=== PATIENT | female | born 1940 | race Caucasian/White ===

== ENCOUNTER 2020-06-30 14:10 | Inpatient (IN) | payer MEDICARE, OTHER ==
[~2020-06-30] VITALS: Ht 152.4 cm; Wt 85.3 kg
[2020-06-30 14:50] LABS: EOSINOPHILS % (AUTO) 6.3 % (0.0-8.0); HEMATOCRIT 34.7 % (36-48); LYMPHOCYTES % (AUTO) 21.7 % (21.0-51.0); MEAN CORPUSCULAR HGB CONC 30.5 g/dL (32.0-36.0); MEAN CORPUSCULAR VOLUME 98.3 fL (79-99); MONOCYTES % (AUTO) 9.1 % (3.0-13.0); NEUTROPHILS % (AUTO) 61.6 % (40.0-77.0); PLATELET COUNT (AUTO) 108 K/uL (130-400); RED BLOOD CELL COUNT(AUTO) 3.53 MIL/uL (4.00-5.50); RED CELL DISTRIBUTION WIDTH 14.1 % (11.0-15.5); WHITE BLOOD COUNT (AUTO) 3.8 K/uL (4.8-10.8)
[2020-06-30 15:01] LABS: CREATININE 1.4 mg/dL (0.5-1.5); POTASSIUM 4.2 mmol/L (3.5-5.1)
[2020-06-30 15:04] LABS: INR 1.06 (0.85-1.15); PROTHROMBIN TIME 11.5 SEC (9.6-11.6)
[2020-06-30 15:06] LABS: ALBUMIN 3.6 g/dL (3.5-5.0); BILIRUBIN,TOTAL 0.6 mg/dL (0.2-1.0); PARTIAL THROMBOPLASTIN TIME 25.6 SEC (26.3-35.5); TOTAL PROTEIN, SERUM 7.4 g/dL (6.0-8.3)
[2020-06-30] MEDS ORDERED: KCL 20 MEQ ERTAB PO SCH (16:30)
[2020-06-30] MEDS ORDERED: FUROSEMIDE 40MG VIAL IV SCH (16:30)
[2020-06-30 17:21] LABS: MAGNESIUM 1.9 mg/dL (1.80-2.40); THYROID STIMULATING HORMONE 3.48 uIU/mL (0.36-3.74)
[2020-06-30] MEDS ORDERED: CARB1TAB20 PO (18:07)
[2020-06-30] MEDS ORDERED: ALEN70TA80 PO (18:07)
[2020-06-30] MEDS ORDERED: FURO20TA6 PO (18:07)
[2020-06-30] MEDS ORDERED: POTA-10 PO (18:07)
[2020-06-30] MEDS ORDERED: ATOR40TA69 PO (18:07)
[2020-06-30] MEDS ORDERED: CLOP75TA14 PO (18:07)
[2020-06-30] MEDS ORDERED: OXYB5TAB15 PO (18:07)
[2020-06-30] MEDS ORDERED: OMEP40CA21 PO (18:07)
[2020-06-30] MEDS ORDERED: AEC81 PO (18:07)
[2020-06-30] MEDS ORDERED: TOPI50TA24 PO (18:07)
[2020-06-30] MEDS ORDERED: METO-408 PO (18:07)
[2020-06-30] MEDS ORDERED: LISI5TAB21 PO (18:07)
[2020-06-30 19:29] LABS: HEMOGLOBIN A1C 5.5 % (4.0-6.0)
[2020-06-30] MEDS ORDERED: CARVEDILOL 3.125 MG TABLET PO ONE (20:31)
[2020-06-30] MEDS ORDERED: NON-FORMULARY MEDICATION 1 EACH (Topiramate 50 MG) PO SCH (21:00)
[2020-06-30] MEDS: CARVEDILOL 3.125 MG TABLET PO SCH (21:00)
[2020-06-30] MEDS: CARBIDOPA-LEVODOPA 25-100 TAB PO SCH (21:00)
[2020-06-30] MEDS: TOPIRAMATE 25 MG TABLET PO SCH (21:00)
[2020-06-30] MEDS ORDERED: RENAL DOSE IV SCH (23:00)
[2020-06-30 23:49] LABS: APPEARANCE,URINE Cloudy (CLEAR); BILIRUBIN,URINE Negative (NEGATIVE); COLOR,URINE Yellow (YELLOW); GLUCOSE, URINE (UA) Negative (NEGATIVE); KETONES,URINE Negative (NEGATIVE); LEUKOCYTE ESTERASE ,URINE Large (NEGATIVE); NITRATE,URINE Negative (NEGATIVE); OCCULT BLOOD,URINE Trace (NEGATIVE); PROTEIN,URINE Negative (NEGATIVE)
[2020-07-01] MEDS ORDERED: ENOXAPARIN SODIUM 1 MG/KG SQ SCH
[2020-07-01] MEDS ORDERED: ENOXAPARIN SODIUM 100 MG/1 ML SQ SCH (00:15)
[2020-07-01 00:17] LABS: BACTERIA,URINE Many /HPF (None Seen); WBC,URINE 26-50 /HPF (0-1)
[2020-07-01 04:39] LABS: BASOPHILS % (AUTO) 0.8 % (0.0-5.0); EOSINOPHILS % (AUTO) 5.3 % (0.0-8.0); HEMATOCRIT 33.7 % (36-48); LYMPHOCYTES % (AUTO) 28.1 % (21.0-51.0); MEAN CORPUSCULAR HEMOGLOBIN 29.9 pg (27.0-33.0); MEAN CORPUSCULAR VOLUME 99.7 fL (79-99); MONOCYTES % (AUTO) 9.1 % (3.0-13.0); NEUTROPHILS % (AUTO) 56.4 % (40.0-77.0); PLATELET COUNT (AUTO) 120 K/uL (130-400); RED BLOOD CELL COUNT(AUTO) 3.38 MIL/uL (4.00-5.50); RED CELL DISTRIBUTION WIDTH 13.9 % (11.0-15.5); WHITE BLOOD COUNT (AUTO) 3.7 K/uL (4.8-10.8)
[2020-07-01 04:55] LABS: CREATININE 1.3 mg/dL (0.5-1.5); POTASSIUM 3.9 mmol/L (3.5-5.1)
[2020-07-01] MEDS: FUROSEMIDE 40MG VIAL IV SCH ×2 (07:30→16:30)
[2020-07-01] MEDS: KCL 20 MEQ ERTAB PO SCH (08:00)
[2020-07-01] MEDS ORDERED: ENOXAPARIN SODIUM 100 MG/1 ML SQ ONE ×2 (08:38→21:14)
[2020-07-01] MEDS ORDERED: ASPIRIN 81MG CHEW TAB ONE (08:39)
[2020-07-01] MEDS ORDERED: LISINOPRIL 5 MG TABLET ONE (08:39)
[2020-07-01] MEDS ORDERED: KCL 20 MEQ ERTAB PO ONE (08:39)
[2020-07-01] MEDS ORDERED: CLOPIDOGREL 75MG TAB ONE (08:40)
[2020-07-01] MEDS ORDERED: CARVEDILOL 3.125 MG TABLET PO ONE ×2 (08:40→21:14)
[2020-07-01] MEDS ORDERED: FUROSEMIDE 40MG VIAL ONE (08:40)
[2020-07-01] MEDS: ASPIRIN 81MG CHEW TAB PO SCH (09:00)
[2020-07-01] MEDS: LISINOPRIL 5 MG TABLET PO SCH (09:00)
[2020-07-01] MEDS ORDERED: NON-FORMULARY MEDICATION 1 EACH (Omeprazole 40 MG) PO SCH (09:00)
[2020-07-01] MEDS: PANTOPRAZOLE 40 MG TAB DR PO SCH (09:00)
[2020-07-01] MEDS ORDERED: ENOXAPARIN SODIUM 80 MG/0.8 ML SQ SCH (09:00)
[2020-07-01] MEDS: CLOPIDOGREL 75MG TAB PO SCH (09:00)
[2020-07-01] MEDS: TOPIRAMATE 25 MG TABLET PO SCH ×2 (09:00→21:00)
[2020-07-01] MEDS: CARBIDOPA-LEVODOPA 25-100 TAB PO SCH ×4 (09:00→21:00)
[2020-07-01] MEDS: CARVEDILOL 3.125 MG TABLET PO SCH ×2 (09:00→21:00)
[2020-07-01] MEDS ORDERED: PANTOPRAZOLE 40 MG TAB DR ONE (10:39)
[2020-07-02 01:48] VITALS: BP 125/53
[2020-07-02 05:12] VITALS: BP 107/56
[2020-07-02] MEDS: FUROSEMIDE 40MG VIAL IV SCH ×2 (06:23→17:35)
[2020-07-02 08:20] VITALS: BP 116/56
[2020-07-02] MEDS: KCL 20 MEQ ERTAB PO SCH (08:22)
[2020-07-02] MEDS: CARBIDOPA-LEVODOPA 25-100 TAB PO SCH ×4 (08:22→20:42)
[2020-07-02] MEDS: PANTOPRAZOLE 40 MG TAB DR PO SCH (08:22)
[2020-07-02] MEDS: ASPIRIN 81MG CHEW TAB PO SCH (08:22)
[2020-07-02] MEDS: CLOPIDOGREL 75MG TAB PO SCH (08:23)
[2020-07-02] MEDS: CARVEDILOL 3.125 MG TABLET PO SCH ×2 (08:23→20:42)
[2020-07-02] MEDS: LISINOPRIL 5 MG TABLET PO SCH (09:00)
[2020-07-02] MEDS ORDERED: ENOXAPARIN SODIUM 100 MG/1 ML SQ SCH (09:00)
[2020-07-02 09:14] LABS: BASOPHILS % (AUTO) 0.9 % (0.0-5.0); EOSINOPHILS % (AUTO) 5.7 % (0.0-8.0); HEMATOCRIT 34.5 % (36-48); LYMPHOCYTES % (AUTO) 24.9 % (21.0-51.0); MEAN CORPUSCULAR HEMOGLOBIN 30.6 pg (27.0-33.0); MEAN CORPUSCULAR HGB CONC 31.6 g/dL (32.0-36.0); MEAN CORPUSCULAR VOLUME 96.9 fL (79-99); MONOCYTES % (AUTO) 9.3 % (3.0-13.0); NEUTROPHILS % (AUTO) 58.9 % (40.0-77.0); PLATELET COUNT (AUTO) 106 K/uL (130-400); RED BLOOD CELL COUNT(AUTO) 3.56 MIL/uL (4.00-5.50); RED CELL DISTRIBUTION WIDTH 13.8 % (11.0-15.5); WHITE BLOOD COUNT (AUTO) 3.3 K/uL (4.8-10.8)
[2020-07-02 09:21] LABS: CREATININE 1.2 mg/dL (0.5-1.5); POTASSIUM 3.7 mmol/L (3.5-5.1)
[2020-07-02 09:26] LABS: ALBUMIN 3.3 g/dL (3.5-5.0); BILIRUBIN,TOTAL 0.8 mg/dL (0.2-1.0); TOTAL PROTEIN, SERUM 7.1 g/dL (6.0-8.3)
[2020-07-02 09:34] LABS: B-TYPE NATRIURETIC PEPTIDE 81 pg/mL (0-100)
[2020-07-02] MEDS: TOPIRAMATE 25 MG TABLET PO SCH ×2 (10:57→20:42)
[2020-07-02 12:18] VITALS: BP 107/49
[2020-07-02 16:00] VITALS: BP 113/50
[2020-07-02 20:00] VITALS: BP 117/50
[2020-07-02] MEDS: APIXABAN 5 MG TABLET PO SCH (20:37)
[2020-07-03] VITALS: BP 100/46
[2020-07-03 04:00] VITALS: BP 105/50
[2020-07-03 05:00] LABS: BASOPHILS % (AUTO) 0.9 % (0.0-5.0); EOSINOPHILS % (AUTO) 5.6 % (0.0-8.0); HEMATOCRIT 31.1 % (36-48); LYMPHOCYTES % (AUTO) 28.3 % (21.0-51.0); MEAN CORPUSCULAR HEMOGLOBIN 30.2 pg (27.0-33.0); MEAN CORPUSCULAR HGB CONC 31.5 g/dL (32.0-36.0); MEAN CORPUSCULAR VOLUME 95.7 fL (79-99); MONOCYTES % (AUTO) 13.7 % (3.0-13.0); NEUTROPHILS % (AUTO) 51.2 % (40.0-77.0); PLATELET COUNT (AUTO) 112 K/uL (130-400); RED BLOOD CELL COUNT(AUTO) 3.25 MIL/uL (4.00-5.50); RED CELL DISTRIBUTION WIDTH 13.7 % (11.0-15.5); WHITE BLOOD COUNT (AUTO) 3.2 K/uL (4.8-10.8)
[2020-07-03 05:20] LABS: ALBUMIN 2.9 g/dL (3.5-5.0); BILIRUBIN,TOTAL 0.7 mg/dL (0.2-1.0); CREATININE 1.3 mg/dL (0.5-1.5); POTASSIUM 3.7 mmol/L (3.5-5.1); TOTAL PROTEIN, SERUM 6.6 g/dL (6.0-8.3)
[2020-07-03] MEDS: FUROSEMIDE 40MG VIAL IV SCH ×2 (06:02→17:14)
[2020-07-03 08:00] VITALS: BP 122/55
[2020-07-03] MEDS: APIXABAN 5 MG TABLET PO SCH ×2 (08:31→21:53)
[2020-07-03] MEDS: KCL 20 MEQ ERTAB PO SCH (08:32)
[2020-07-03] MEDS: CLOPIDOGREL 75MG TAB PO SCH (08:32)
[2020-07-03] MEDS: CARVEDILOL 3.125 MG TABLET PO SCH ×2 (08:32→21:54)
[2020-07-03] MEDS: ASPIRIN 81MG CHEW TAB PO SCH (08:32)
[2020-07-03] MEDS: TOPIRAMATE 25 MG TABLET PO SCH ×2 (08:33→21:54)
[2020-07-03] MEDS: PANTOPRAZOLE 40 MG TAB DR PO SCH (08:33)
[2020-07-03] MEDS: CARBIDOPA-LEVODOPA 25-100 TAB PO SCH ×4 (08:33→21:54)
[2020-07-03] MEDS: LISINOPRIL 5 MG TABLET PO SCH (09:00)
[2020-07-03 12:05] VITALS: BP 109/51
[2020-07-03 16:00] VITALS: BP 112/55
[2020-07-03 19:55] VITALS: BP 115/68
[2020-07-04 00:14] VITALS: BP 95/44
[2020-07-04 04:00] VITALS: BP 98/48
[2020-07-04 05:57] LABS: BASOPHILS % (AUTO) 0.8 % (0.0-5.0); EOSINOPHILS % (AUTO) 5.1 % (0.0-8.0); LYMPHOCYTES % (AUTO) 24.9 % (21.0-51.0); MEAN CORPUSCULAR HEMOGLOBIN 30.5 pg (27.0-33.0); MEAN CORPUSCULAR HGB CONC 32.2 g/dL (32.0-36.0); MEAN CORPUSCULAR VOLUME 94.7 fL (79-99); MONOCYTES % (AUTO) 11.3 % (3.0-13.0); NEUTROPHILS % (AUTO) 57.6 % (40.0-77.0); PLATELET COUNT (AUTO) 124 K/uL (130-400); RED BLOOD CELL COUNT(AUTO) 3.38 MIL/uL (4.00-5.50); RED CELL DISTRIBUTION WIDTH 13.6 % (11.0-15.5); WHITE BLOOD COUNT (AUTO) 3.5 K/uL (4.8-10.8)
[2020-07-04 06:10] LABS: ALBUMIN 3.2 g/dL (3.5-5.0); BILIRUBIN,TOTAL 0.9 mg/dL (0.2-1.0); CREATININE 1.6 mg/dL (0.5-1.5); POTASSIUM 3.7 mmol/L (3.5-5.1); TOTAL PROTEIN, SERUM 6.9 g/dL (6.0-8.3)
[2020-07-04] MEDS: FUROSEMIDE 40MG VIAL IV SCH (06:10)
[2020-07-04 07:58] VITALS: BP 100/52
[2020-07-04] MEDS: LISINOPRIL 5 MG TABLET PO SCH (09:00)
[2020-07-04] MEDS: TOPIRAMATE 25 MG TABLET PO SCH (09:00)
[2020-07-04] MEDS: PANTOPRAZOLE 40 MG TAB DR PO SCH (09:00)
[2020-07-04] MEDS: CLOPIDOGREL 75MG TAB PO SCH (09:00)
[2020-07-04] MEDS: CARBIDOPA-LEVODOPA 25-100 TAB PO SCH ×3 (09:00→16:56)
[2020-07-04] MEDS: CARVEDILOL 3.125 MG TABLET PO SCH (09:00)
[2020-07-04] MEDS: APIXABAN 5 MG TABLET PO SCH (09:01)
[2020-07-04] MEDS: ASPIRIN 81MG CHEW TAB PO SCH (09:01)
[2020-07-04] MEDS: KCL 20 MEQ ERTAB PO SCH (09:02)
[2020-07-04 11:33] VITALS: BP 103/43
[2020-07-04] MEDS ORDERED: APIX5TAB PO (13:51)
[2020-07-04 16:00] VITALS: BP 105/41
== END 2020-07-04 20:10 | disposition home or self-care (01) | DRG 291 ==
LOC: EDH 14:10 → EDHIP 16:37 → 4DH 07-02 00:18
PROVIDERS: ADMIT Internal Medicine; ATTEND Internal Medicine
DX: I13.0 Hypertensive heart and chronic kidney disease with heart failure and stage 1 through stage 4 chronic kidney disease, or unspecified chronic kidney disease (principal); I50.33 Acute on chronic diastolic (congestive) heart failure; I82.411 Acute embolism and thrombosis of right femoral vein; I82.432 Acute embolism and thrombosis of left popliteal vein; N17.9 Acute kidney failure, unspecified; I95.9 Hypotension, unspecified; I50.9 Heart failure, unspecified; D69.6 Thrombocytopenia, unspecified; G20 Parkinson's disease; I25.10 Atherosclerotic heart disease of native coronary artery without angina pectoris; I08.1 Rheumatic disorders of both mitral and tricuspid valves; M81.0 Age-related osteoporosis without current pathological fracture; F39 Unspecified mood [affective] disorder; E66.9 Obesity, unspecified; D50.9 Iron deficiency anemia, unspecified; E78.5 Hyperlipidemia, unspecified; N18.32 Chronic kidney disease, stage 3b; Z96.653 Presence of artificial knee joint, bilateral; D53.9 Nutritional anemia, unspecified; K21.9 Gastro-esophageal reflux disease without esophagitis; Z95.5 Presence of coronary angioplasty implant and graft; Z79.899 Other long term (current) drug therapy; I25.2 Old myocardial infarction; Z68.36 Body mass index [BMI] 36.0-36.9, adult; Z88.1 Allergy status to other antibiotic agents; Z91.048 Other nonmedicinal substance allergy status; Z79.82 Long term (current) use of aspirin
CPT/HCPCS: 36415; 71045; 78582; 80048; 80053; 80061; 81001; 82550; 82570; 83036; 83735; 83880; 84443; 84484; 84540; 85025; 85378; 85610; 85730; 87088; 93005; 93306; 93356; 93970; A9540; A9558; G0378; J1650; J1940